=== PATIENT | female | born 1975 | race Caucasian/White ===

== ENCOUNTER → 2016-08-03 | Outpatient (CLI) | payer MEDICAID ==
--- NOTE | 2016-08-03 17:10 | RADIOLOGY REPORT (SQ) ---
EXAM DESCRIPTION: U/S NON-OB PELVIS TV W/O DOP COMPLETED DATE/TIME: 08/03/2016 4:54 pm REASON FOR STUDY: PELVIC PAIN R10.2 PELVIC AND PERINEAL PAIN COMPARISON: None. TECHNIQUE: Dynamic and static grayscale images acquired of the pelvis via transvaginal approach and recorded on PACS. Additional selected color Doppler and spectral images recorded. LIMITATIONS: None. FINDINGS: UTERUS: Contour normal. No mass. Uterus is 9.4 x 4.6 x 4.4 cm in size. ENDOMETRIAL STRIPE: No focal or generalized thickening. No masses. There is an IUD in the endometria l canal, in good positioning. CERVIX: Closed, subcentimeter nabothian cyst. RIGHT OVARY: Not visualized due to adnexal bowel gas RIGHT OVARY DOPPLER: Not performed LEFT OVARY: Not visualized due to adnexal bowel gas LEFT OVARY DOPPLER: Not performed FREE FLUID: None noted. OTHER: No other significant finding. IMPRESSION: Ovaries not visualized related to bowel gas IUD in the endometrial canal in good positioning No free pelvic fluid TECHNICAL DOCUMENTATION: JOB ID: [id number] [email or web address] All Rights Reserved
== END ==
LOC: RAD 16:16
PROVIDERS: ATTEND Physician Assistant
DX: R10.2 Pelvic and perineal pain (principal)
CPT/HCPCS: 76830

== ENCOUNTER 2016-08-07 10:46 | Day surgery (SDC) | payer MEDICAID ==
[~2016-08-07 10:46] MED LIST: PROPOFOL INJ 200 MG/20 ML VIAL IV ONE
--- NOTE | 2016-08-07 13:21 | Operative Report ---
Operative Report DATE OF SURGERY: 08/07/16 Operative Report: The risks benefits and alternatives of the procedure explained to the patient in detail and informed consent is obtained. A GIF Olympus video scope was inserted into the patient's mouth and hypopharynx, the esophagus is identified intubated and insufflated, the scope was then advanced through the esophagus stomach and duodenum, retroflexion maneuver is done, the esophagus stomach and first and second portions of the duodenum examined PREOPERATIVE DIAGNOSIS: Epigastric pain POSTOPERATIVE DIAGNOSIS: Gastritis status post biopsy rule out Helicobacter pylori. No ulcers are noted. Status post cholecystectomy OPERATION: EGD with biopsy SURGEON: JUSTINA GATES ANESTHESIA: LMAC TISSUE REMOVED OR ALTERED: Gastric mucosal specimen obtained to rule out Helicobacter pylori COMPLICATIONS: None. ESTIMATED BLOOD LOSS: None. INTRAOPERATIVE FINDINGS: Normal esophagus. No ulcers noted. First and second portions of the duodenum normal. PROCEDURE: Patient tolerated the procedure well. No immediate postprocedure complications are noted. Patient discharged in good condition. Discharge date 08/07/2016. Discharge diet: Regular. Discharge activity: Regular. 2-3 week follow-up to discuss findings. Patient is instructed to call the office or proceed to the emergency room should there be any further problems or questions. We will wait on pathology.
[2016-08-07 14:12] VITALS: BP 138/78
== END 2016-08-07 13:50 | disposition home or self-care (01) ==
LOC: END 10:46
PROVIDERS: ATTEND Internal Medicine Gastroenterology
PROC: 0DB68ZX Excision of Stomach, Via Natural or Artificial Opening Endoscopic, Diagnostic (ICD-10-PCS; principal; 2016-08-07 14:30)
DX: K29.50 Unspecified chronic gastritis without bleeding (principal); I10 Essential (primary) hypertension; F17.210 Nicotine dependence, cigarettes, uncomplicated; E66.9 Obesity, unspecified; Z68.43 Body mass index [BMI] 50.0-59.9, adult; Z88.0 Allergy status to penicillin; Z79.899 Other long term (current) drug therapy; Z88.1 Allergy status to other antibiotic agents
CPT/HCPCS: 43239; 88342 ×2; 88305 ×2; J2704; 740

== ENCOUNTER 2016-09-22 09:38 | Emergency (ER) | payer MEDICAID ==
--- NOTE | 2016-09-22 10:11 | ER Document Report ---
ED Medical Screen (RME) - General Chief Complaint: Vaginal Pain Stated Complaint: VAGINAL PAIN Time Seen by Provider: 09/22/16 09:57 Mode of Arrival: Medic Information source: Patient Notes: Patient presents complaining of Bartholin's gland abscess for the past 2 weeks. Patient had an incision and drainage procedure performed by the faucets assembler Dr. Escudero on 725 and was placed on Bactrim. Patient followed up with her primary doctor last week she was still having pain and was placed on additional antibiotic. Patient complains of increased pain and swelling to the vaginal area. Patient also states that she has had bronchitis that has been giving her difficulty breathing. TRAVEL OUTSIDE OF THE [place] IN LAST 30 DAYS: No - Related Data Allergies/Adverse Reactions: Penicillins Allergy (Unknown, Verified 09/22/16 09:44) Past Medical History - Social History Frequency of alcohol use: Occasional Drug Abuse: None - Past Medical History Cardiac Medical History: Reports: Hx Hypertension Denies: Hx Coronary Artery Disease, Hx Heart Attack Pulmonary Medical History: Denies: Hx Asthma, Hx Bronchitis, Hx COPD, Hx Pneumonia, Hx Tuberculosis Neurological Medical History: Reports: Hx Migraine. Denies: Hx Cerebrovascular Accident, Hx Seizures Renal/ Medical History: Denies: Hx Peritoneal Dialysis Musculoskeltal Medical History: Reports Hx Arthritis - LOWER BACK Psychiatric Medical History: Reports: Hx Anxiety, Hx Depression Past Surgical History: Reports: Hx Cholecystectomy. Denies: Hx Hysterectomy, Hx Pacemaker - Immunizations Immunizations up to date: Yes Hx Diphtheria, Pertussis, Tetanus Vaccination: Yes Physical Exam - Vital signs Vitals: Temp Pulse Resp BP Pulse Ox 99.0 F 105 H 26 H 147/93 H 98 09/22/16 09:43 09/22/16 09:43 09/22/16 09:43 09/22/16 09:43 09/22/16 09:43 - Genitourinary External exam: Other - Large right-sided Bartholin's gland abscess exquisitely tender Course - Vital Signs Vital signs: Temp Pulse Resp BP Pulse Ox 99.0 F 105 H 26 H 147/93 H 98 09/22/16 09:43 09/22/16 09:43 09/22/16 09:43 09/22/16 09:43 09/22/16 09:43
[2016-09-22] MEDS ORDERED: MORPHINE SULFATE 10 MG/ML INJ IV ONE ×2 (11:07→11:58)
--- NOTE | 2016-09-22 11:11 | ER Document Report ---
ED GI/ - General Chief Complaint: Vaginal Pain Stated Complaint: VAGINAL PAIN Time Seen by Provider: 09/22/16 09:57 Mode of Arrival: Medic Information source: Patient TRAVEL OUTSIDE OF THE [place] IN LAST 30 DAYS: No - HPI Patient complains to provider of: Pelvic pain, Vaginal pain Onset: Last week Timing/Duration: Gradual, Persistent Quality of pain: Achy, Fullness, Pressure Severity at maximum: Severe Severity in ED: Severe Exacerbated by: Movement Similar symptoms previously: Yes Notes: 09/22/16 11:10 Patient is a 41-year-old female who emergency room complaining of painful swelling to her right labia that has been worsening over the past week, she has a history of a Bartholin's gland abscess that was incised and drained approximately 2 months ago, she had her mitten relief but symptoms have been getting worse over the past week, today she was on her way to work and stopped at a gas station where it sounds as though she had a near syncopal episode, then she had another one again a couple hours later, at which point in time she came to the emergency room by EMS for treatment of her pain - Related Data Allergies/Adverse Reactions: Penicillins Allergy (Unknown, Verified 09/22/16 09:44) Past Medical History - General Information source: Patient - Social History Smoking Status: Current Every Day Smoker Frequency of alcohol use: Occasional Drug Abuse: None Family History: Reviewed & Not Pertinent - Past Medical History Cardiac Medical History: Reports: Hx Hypertension Denies: Hx Coronary Artery Disease, Hx Heart Attack Pulmonary Medical History: Denies: Hx Asthma, Hx Bronchitis, Hx COPD, Hx Pneumonia, Hx Tuberculosis Neurological Medical History: Reports: Hx Migraine. Denies: Hx Cerebrovascular Accident, Hx Seizures Renal/ Medical History: Denies: Hx Peritoneal Dialysis Musculoskeltal Medical History: Reports Hx Arthritis - LOWER BACK Psychiatric Medical History: Reports: Hx Anxiety, Hx Depression Past Surgical History: Reports: Hx Cholecystectomy. Denies: Hx Hysterectomy, Hx Pacemaker - Immunizations Immunizations up to date: Yes Hx Diphtheria, Pertussis, Tetanus Vaccination: Yes Hx Pneumococcal Vaccination: 02/19/11 Review of Systems - Review of Systems Constitutional: No symptoms reported EENT: No symptoms reported Cardiovascular: No symptoms reported Respiratory: No symptoms reported Gastrointestinal: No symptoms reported Genitourinary: No symptoms reported Female Genitourinary: See HPI Musculoskeletal: No symptoms reported Skin: No symptoms reported Hematologic/Lymphatic: No symptoms reported Neurological/Psychological: No symptoms reported -: Yes All other systems reviewed and negative Physical Exam - Vital signs Vitals: Temp Pulse Resp BP Pulse Ox 99.0 F 105 H 26 H 147/93 H 98 09/22/16 09:43 09/22/16 09:43 09/22/16 09:43 09/22/16 09:43 09/22/16 09:43 Interpretation: Normal - General General appearance: Appears well, Alert - HEENT Head: Normocephalic, Atraumatic Eyes: Normal Pupils: PERRL - Respiratory Respiratory status: No respiratory distress Chest status: Nontender Breath sounds: Normal Chest palpation: Normal - Cardiovascular Rhythm: Regular Heart sounds: Normal auscultation Murmur: No - Abdominal Inspection: Normal Distension: No distension Bowel sounds: Normal Tenderness: Nontender Organomegaly: No organomegaly - Genitourinary External exam: Other - Right labia significantly swollen, erythematous and tender to palpate - Back Back: Normal, Nontender - Extremities General upper extremity: Normal inspection, Nontender, Normal color, Normal ROM , Normal temperature General lower extremity: Normal inspection, Nontender, Normal color, Normal ROM , Normal temperature, Normal weight bearing. No: Tomi's sign - Neurological Neuro grossly intact: Yes Cognition: Normal Orientation: AAOx4 Renée Coma Scale Eye Opening: Spontaneous Harold Coma Scale Verbal: Oriented Renée Coma Scale Motor: Obeys Commands Renée Coma Scale Total: 15 Speech: Normal Motor strength normal: LUE, RUE, LLE, RLE Sensory: Normal - Psychological Associated symptoms: Normal affect, Normal mood - Skin Skin Temperature: Warm Skin Moisture: Dry Skin Color: Normal Course - Re-evaluation Re-evalutation: 09/22/16 11:49 It was discussed with on-call AUTOMOTIVE ELECTRICAL HELPER, Dr. Escudero who treated her recently for similar concerns, recommends I place a Word catheter at this point in time and she keep her appointment in 2 days time as scheduled, she will be scheduled for a procedure to remove the Bartholin's gland in the future once the infection clears, she also recommends I start patient on Bactrim DS twice daily 10 days 09/22/16 12:30 On examination I did find the point of rupture of the abscess on the right inner labia, I was able to express a significant amount of purulent drainage at this point, and a Moore catheter was placed, patient will be started on antibiotics and provided with pain medication, she was advised to keep her appointment on Sunday with AUTOMOTIVE ELECTRICAL HELPER or return if symptoms worsen, patient acknowledges understanding and agreement with this plan - Vital Signs Vital signs: Temp Pulse Resp BP Pulse Ox 98.9 F 91 16 124/73 97 09/22/16 12:54 09/22/16 12:54 09/22/16 12:54 09/22/16 12:54 09/22/16 12:54 - Laboratory Result Diagrams: 09/22/16 11:00 09/22/16 11:00 Laboratory results interpreted by me: 09/22/16 09/22/16 11:00 11:00 WBC 17.1 H Seg Neutrophils % 81.5 H Absolute Neutrophils 14.0 H Carbon Dioxide 17 L - Consults Dr Escudero Time consulted: 11:21 Reason for consultation: 09/22/16 11:21 large bartholin gland abscess, recurrent Consulted provider: other Procedures - Additional Procedures Moore catheter placement Time performed: 14:43 Additional Procedures: Other Discharge - Discharge Clinical Impression: Bartholin's gland abscess Condition: Stable Disposition: HOME, SELF-CARE Instructions: Abscess ([facility]), Oral Narcotic Medication ([facility]), Trimethoprim- Sulfa ([facility]) Additional Instructions: Follow up with your primary care provider in one to 2 days. Return to the emergency room immediately if symptoms worsen or any additional concerns. Follow-up with your AUTOMOTIVE ELECTRICAL HELPER on Sunday of next week as previously scheduled. Prescriptions: Hydrocodone/Acetaminophen [Hydrocodon-Acetaminophen 5-325] 1 each PO Q6 #20 tablet Sulfamethoxazole/Trimethoprim [Bactrim Ds Tablet] 1 each PO BID #20 tablet Forms: Return to Work Referrals: MARIE MONTAGUE PA-C [Primary Care Provider] - Follow up as needed
[2016-09-22 11:14] LABS: ABSOLUTE BASOPHILS # (AUTO) 0.1 10^3/uL (0.0-0.2); ABSOLUTE EOSINOPHILS # (AUTO) 0.1 10^3/uL (0.0-0.6); ABSOLUTE LYMPHOCYTES (AUTO) 2.4 10^3/uL (0.5-4.7); ABSOLUTE MONOCYTES (AUTO) 0.7 10^3/uL (0.1-1.4); BASOPHILS % (AUTO) 0.3 % (0-2); EOSINOPHILS % (AUTO) 0.3 % (0-6); HEMATOCRIT 39.5 % (36.0-47.0); HEMOGLOBIN 13.5 g/dL (12.0-15.5); MEAN CORPUSCULAR HEMOGLOBIN 29.8 pg (27.0-33.4); MEAN CORPUSCULAR HGB CONC 34.3 g/dL (32.0-36.0); MEAN CORPUSCULAR VOLUME 87 fl (80-97); MONOCYTES % (AUTO) 3.9 % (3-13); RED BLOOD COUNT 4.53 10^6/uL (3.72-5.28); RED CELL DISTRIBUTION WIDTH 13.6 % (11.5-14.0); SEGMENTED NEUTROPHILS % (AUTO) 81.5 % (42-78); WHITE BLOOD COUNT 17.1 10^3/uL (4.0-10.5)
[2016-09-22 11:33] LABS: ALANINE AMINOTRANSFERASE 23 U/L (9-52); ALBUMIN 3.7 g/dL (3.5-5.0); ALKALINE PHOSPHATASE 92 U/L (38-126); ANION GAP 16 (5-19); ASPARTATE AMINO TRANSFERASE 16 U/L (14-36); BILIRUBIN,DIRECT 0.4 mg/dL (0.0-0.4); BILIRUBIN,TOTAL 0.8 mg/dL (0.2-1.3); BLOOD UREA NITROGEN 12 mg/dL (7-20); CALCIUM 8.5 mg/dL (8.4-10.2); CARBON DIOXIDE 17 mmol/L (22-30); CHLORIDE 105 mmol/L (98-107); CREATININE RESULT 0.72 mg/dL (0.52-1.25); GLUCOSE 95 mg/dL (75-110); POTASSIUM 4.2 mmol/L (3.6-5.0); SODIUM 138.4 mmol/L (137-145); TOTAL PROTEIN 7.3 g/dL (6.3-8.2)
[2016-09-22] MEDS ORDERED: ONDANSETRON HCL INJ/PF 4 MG/2 ML SDV IV ONE (11:58)
[2016-09-22 13:03] VITALS: BP 124/73
== END 2016-09-22 13:03 | disposition home or self-care (01) ==
LOC: ER 09:38
DX: N75.1 Abscess of Bartholin's gland (principal); R10.2 Pelvic and perineal pain; I10 Essential (primary) hypertension; Z88.0 Allergy status to penicillin
CPT/HCPCS: 96376; 99284; 96374; 96375; 36415; 87040; 87070; 87205; 84703; 85025; 87075; 87077; 80053; 87186; 58999; J2270; J2405

== ENCOUNTER 2016-10-19 06:56 | Day surgery (SDC) | payer MEDICAID ==
[2016-10-16 12:34] LABS: HEMATOCRIT 37.8 % (36.0-47.0); HGB HCT DIFFERENCE 1.2; MEAN CORPUSCULAR HEMOGLOBIN 30.5 pg (27.0-33.4); MEAN CORPUSCULAR HGB CONC 34.4 g/dL (32.0-36.0); MEAN CORPUSCULAR VOLUME 89 fl (80-97); RED BLOOD COUNT 4.26 10^6/uL (3.72-5.28); RED CELL DISTRIBUTION WIDTH 14.1 % (11.5-14.0); WHITE BLOOD COUNT 9.4 10^3/uL (4.0-10.5)
[2016-10-16 12:45] LABS: AMORPHOUS SEDIMENT,URINE TRACE /HPF; APPEARANCE,URINE SLIGHTLY-CLOUDY; BILIRUBIN,URINE NEGATIVE (NEGATIVE); GLUCOSE, URINE NEGATIVE (NEGATIVE); KETONES,URINE NEGATIVE (NEGATIVE); LEUKOCYTE ESTERASE,URINE TRACE (NEGATIVE); NITRITE,URINE NEGATIVE (NEGATIVE); PROTEIN,URINE NEGATIVE (NEGATIVE); URINE SPECIFIC GRAVITY 1.026; UROBILINOGEN,URINE NEGATIVE mg/dL (<2.0)
--- NOTE | 2016-10-16 23:19 | EKG REPORT ---
SEVERITY:- BORDERLINE ECG - SINUS RHYTHM INFERIOR Q WAVES, PROBABLY NORMAL VARIATION : Confirmed by: Shar Gordillo 16-Oct-2016 23:18:02
[~2016-10-19 06:56] MED LIST changes: +CLINDAMYCIN 600 MG/D5W RTU 600 MG/50 ML RTUPB IV PRN; +LACTATED RINGERS 1000 ML IV PRN; +LIDOCAINE 0.5% INJ-PF (5 MG/ML) 50 ML SDV SUBCUT PRN; -PROPOFOL INJ 200 MG/20 ML VIAL IV ONE
[2016-10-19] MEDS ORDERED: SCOPOLAMINE HYDROBROMIDE 1.5 MG PATCH.TD72 ONE (07:45)
[2016-10-19] MEDS ORDERED: FAMOTIDINE INJ/PF 20 MG/2 ML SDV IV ONE (07:45)
[2016-10-19] MEDS ORDERED: MIDAZOLAM 2 MG/2 ML INJ ONE ×3 (07:45→08:39)
[2016-10-19] MEDS ORDERED: ALBUTEROL SULFATE 0.083% NEB 2.5 MG/3 ML AMPUL NEB ONE (07:53)
[2016-10-19] MEDS ORDERED: DEXAMETHASONE SOD PHOSPHATE INJ 4 MG/1 ML VIAL ONE (08:27)
[2016-10-19] MEDS ORDERED: ACETAMINOPHEN 100 ML IV ONE (08:27)
[2016-10-19] MEDS ORDERED: PROPOFOL INJ 200 MG/20 ML VIAL IV ONE (08:27)
[2016-10-19] MEDS ORDERED: ONDANSETRON HCL INJ/PF 4 MG/2 ML SDV ONE ×2 (08:27→18:48)
[2016-10-19] MEDS ORDERED: LIDOCAINE 2% INJ-PF (20 MG/ML) 10 ML AMPUL ONE (08:27)
[2016-10-19] MEDS ORDERED: FENTANYL CITRATE INJ/PF 100 MCG/2 ML AMPUL ONE (08:27)
[2016-10-19] MEDS ORDERED: KETOROLAC TROMETHAMINE 60 MG/2 ML SDV ONE (08:28)
[2016-10-19] MEDS ORDERED: LIDOCAINE 1% INJ-PF (10 MG/ML) 30 ML SDV ONE (08:28)
[2016-10-19] MEDS ORDERED: PROMETHAZINE HCL INJ 25 MG/1 ML VIAL IV PRN ×2 (09:10)
[2016-10-19] MEDS ORDERED: OXYCODONE-ACETAMINOPHEN 5-325 MG TABLET PO PRN ×2 (09:10)
[2016-10-19] MEDS ORDERED: ONDANSETRON HCL INJ/PF 4 MG/2 ML SDV IV PRN ×2 (09:10→18:49)
[2016-10-19] MEDS ORDERED: FENTANYL CITRATE INJ/PF 100 MCG/2 ML AMPUL IV PRN ×3 (09:10)
[2016-10-19] MEDS ORDERED: DIPHENHYDRAMINE HCL 50 MG/ML VIAL IV PRN (09:10)
[2016-10-19] MEDS ORDERED: MORPHINE SULFATE 10 MG/ML INJ IV PRN (09:10)
[2016-10-19] MEDS ORDERED: MEPERIDINE HCL/PF INJ 25 MG/1 ML DISP.SYRIN IV PRN (09:10)
[2016-10-19] MEDS ORDERED: EPHEDRINE SULFATE INJ 50 MG/1 ML AMPULE ONE (09:58)
[2016-10-19 11:38] LABS: ABSOLUTE EOSINOPHILS # (AUTO) 0.1 10^3/uL (0.0-0.6); ABSOLUTE LYMPHOCYTES (AUTO) 1.2 10^3/uL (0.5-4.7); ABSOLUTE MONOCYTES (AUTO) 0.3 10^3/uL (0.1-1.4); ABSOLUTE NEUT (AUTO) 11.5 10^3/uL (1.7-8.2); BASOPHILS % (AUTO) 0.3 % (0-2); EOSINOPHILS % (AUTO) 0.6 % (0-6); HEMATOCRIT 30.7 % (36.0-47.0); HEMOGLOBIN 10.4 g/dL (12.0-15.5); HGB HCT DIFFERENCE 0.5; LYMPHOCYTES % (AUTO) 9.4 % (13-45); MEAN CORPUSCULAR HEMOGLOBIN 29.9 pg (27.0-33.4); MEAN CORPUSCULAR HGB CONC 33.8 g/dL (32.0-36.0); MEAN CORPUSCULAR VOLUME 89 fl (80-97); MONOCYTES % (AUTO) 1.9 % (3-13); RED BLOOD COUNT 3.46 10^6/uL (3.72-5.28); RED CELL DISTRIBUTION WIDTH 14.4 % (11.5-14.0); SEGMENTED NEUTROPHILS % (AUTO) 87.8 % (42-78); WHITE BLOOD COUNT 13.1 10^3/uL (4.0-10.5)
[2016-10-19] MEDS ORDERED: LORAZEPAM INJ 2 MG/1 ML VIAL ONE (11:42)
[2016-10-19 11:55] LABS: ALANINE AMINOTRANSFERASE 21 U/L (9-52); ALBUMIN 2.9 g/dL (3.5-5.0); ALKALINE PHOSPHATASE 60 U/L (38-126); ANION GAP 10 (5-19); ASPARTATE AMINO TRANSFERASE 17 U/L (14-36); BILIRUBIN,DIRECT 0.3 mg/dL (0.0-0.4); BILIRUBIN,TOTAL 0.5 mg/dL (0.2-1.3); BLOOD UREA NITROGEN 12 mg/dL (7-20); CALCIUM 8.4 mg/dL (8.4-10.2); CARBON DIOXIDE 21 mmol/L (22-30); CHLORIDE 110 mmol/L (98-107); CREATININE RESULT 0.87 mg/dL (0.52-1.25); GLUCOSE 114 mg/dL (75-110); POTASSIUM 3.8 mmol/L (3.6-5.0); SODIUM 140.8 mmol/L (137-145); TOTAL PROTEIN 5.8 g/dL (6.3-8.2)
[2016-10-19] MEDS ORDERED: HYDROMORPHONE HCL INJ/PF 2 MG/ML AMPULE IV PRN ×2 (13:02→17:30)
[2016-10-19] MEDS ORDERED: HYDROCODONE/ACETAMINOPHEN 5-325 MG TABLET ONE (13:30)
[2016-10-19] MEDS ORDERED: HYDROCODONE/ACETAMINOPHEN 5-325 MG TABLET PO SCH (14:00)
[2016-10-19] MEDS: HYDROCODONE/ACETAMINOPHEN 5-325 MG TABLET PO SCH ×3 (15:37→21:36)
[2016-10-20] MEDS: HYDROCODONE/ACETAMINOPHEN 5-325 MG TABLET PO SCH ×4 (01:28→13:45)
[2016-10-20] MEDS ORDERED: HYDROMORPHONE HCL 2 MG TABLET PO PRN (08:31)
--- NOTE | 2016-10-20 12:26 | PDOC DISCHARGE SUMMARY ---
General - Admit/Disc Date/PCP Admission Date/Primary Care Provider: MARIE MONTAGUE PA-C Discharge Date: 10/20/16 - Discharge Diagnosis (1) Bartholin gland cyst Is this a current diagnosis for this admission?: Yes Summary: s/p excision. Larger cyst than expected with increased EBL. Admitted for obseration and pain control overnight. doing well. tolerating po meds and adequate pain control on po meds. - Additional Information Home Medications: Lisinopril 40 mg PO DAILY 08/07/16 Lorazepam [Ativan 1 mg Tablet] 1 - 2 tab PO PRN PRN 10/13/16 History of Present Illness Patient complains of: feeling better History of Present Illness: CARI SÁNCHEZ is a 41 year old female s/p excision of right bartholins gland on 10/19. She is improved today with adequate pain control and desires to discharge home. Hospital Course Hospital Course: 41 year old female s/p excision of right bartholins gland on 10/19. She is improved today (IV dilauded for breaktrhough pain overnight - now on po dilaudid ) with adequate pain control and desires to discharge home Physical Exam - Physical Exam Vital Signs: Temp Pulse Resp BP Pulse Ox 98.1 F 65 16 121/69 97 10/20/16 07:49 10/20/16 07:49 10/20/16 07:49 10/20/16 07:49 10/20/16 07:49 Intake & Output 10/19/16 10/20/16 10/21/16 06:59 06:59 06:59 Intake Total 3650 Output Total 800 Balance 2850 Weight 136.08 kg General appearance: PRESENT: no acute distress, well-developed, well-nourished Head exam: PRESENT: atraumatic, normocephalic Cardiovascular exam: PRESENT: RRR. ABSENT: diastolic murmur, rubs, systolic murmur Pulses: PRESENT: normal dorsalis pedis pul, +2 pedal pulses bilateral Vascular exam: PRESENT: normal capillary refill GI/Abdominal exam: PRESENT: normal bowel sounds, soft. ABSENT: distended, guarding, mass, organolmegaly, rebound, tenderness Rectal exam: PRESENT: deferred Gentrourinary exam: PRESENT: other - incision c/d/i, no e/o infection. no e/o erythema, no bruisinh, no hematoma Extremities exam: PRESENT: full ROM. ABSENT: calf tenderness, clubbing, pedal edema Musculoskeletal exam: PRESENT: ambulatory Neurological exam: PRESENT: alert, awake, oriented to person, oriented to place , oriented to time, oriented to situation, CN II-XII grossly intact. ABSENT: motor sensory deficit Psychiatric exam: PRESENT: appropriate affect, normal mood. ABSENT: homicidal ideation, suicidal ideation Result Laboratory Results: 10/19/16 11:22 10/19/16 11:22 Plan Discharge Plan: Discharge to home f/u in office next week Time Spent: Less than 30 Minutes
--- NOTE | 2016-10-20 12:28 | PDOC PROGRESS REPORT ---
Subjective Progress Note for:: 10/20/16 Subjective:: s/p bartholins excision. Doing well, improved pain control. Physical Exam - Physical Exam Vital Signs: Temp Pulse Resp BP Pulse Ox 98.1 F 65 16 121/69 97 10/20/16 07:49 10/20/16 07:49 10/20/16 07:49 10/20/16 07:49 10/20/16 07:49 Intake & Output 10/19/16 10/20/16 10/21/16 06:59 06:59 06:59 Intake Total 3650 Output Total 800 Balance 2850 Weight 136.08 kg General appearance: PRESENT: no acute distress, well-developed, well-nourished Head exam: PRESENT: atraumatic, normocephalic Respiratory exam: PRESENT: clear to auscultation lan, symmetrical, unlabored Cardiovascular exam: PRESENT: RRR. ABSENT: diastolic murmur, rubs, systolic murmur GI/Abdominal exam: PRESENT: normal bowel sounds, soft. ABSENT: distended, guarding, mass, organolmegaly, rebound, tenderness Gentrourinary exam: PRESENT: other - incision c/d/i, no e/o erythema or bruising or hematoma Extremities exam: PRESENT: full ROM. ABSENT: calf tenderness, clubbing, pedal edema Musculoskeletal exam: PRESENT: ambulatory Neurological exam: PRESENT: alert, awake, oriented to person, oriented to place , oriented to time, oriented to situation, CN II-XII grossly intact. ABSENT: motor sensory deficit Psychiatric exam: PRESENT: appropriate affect, normal mood. ABSENT: homicidal ideation, suicidal ideation Result Laboratory Results: 10/19/16 11:22 10/19/16 11:22 Assessment & Plan - Diagnosis (1) Bartholin gland cyst Is this a current diagnosis for this admission?: Yes Plan: Discharge to home - Time Time Spent with patient: Less than 15 minutes Critical Time spent with patient: Less than 15 minutes Medications reviewed and adjusted accordingly: Yes Anticipated discharge: Home Within: within 24 hours - Inpatient Certification Based on my medical assessment, after consideration of the patient's comorbidities, presenting symptoms, or acuity I expect that the services needed warrant INPATIENT care.: No I certify that my determination is in accordance with my understanding of Medicare's requirements for reasonable and necessary INPATIENT services [42 CFR 412.3e].: No Medical Necessity: Other - Plan Summary Plan Summary: Discharge to home
[2016-10-20 14:45] VITALS: BP 138/96
--- NOTE | 2016-11-02 09:43 | Operative Report ---
Operative Report DATE OF SURGERY: 10/19/16 PREOPERATIVE DIAGNOSIS: Right Bartholin Gland Cyst POSTOPERATIVE DIAGNOSIS: KAREN - s/p removal of bartholins gland cyst wall OPERATION: Right Batholins gland cyst wall excision SURGEON: ABDIAZIZ BANDA ANESTHESIA: GA TISSUE REMOVED OR ALTERED: rigth batholins gland cyst wall COMPLICATIONS: Increased blood loss and patient with low blood pressure postop due to lisinopril (responded to ephedrine given by Anesthesia ESTIMATED BLOOD LOSS: 450ml INTRAOPERATIVE FINDINGS: Very large bartholins gland cyst with mucincous fluid recollectin in cyst. sites of prior rupture and prior word catheter noted. PROCEDURE: Anesthesia: [Luiza ARIZMENDI, Lakisha Acuna CROP PULLER] IVF: [1700ml] UOP: [150ml] Indications: [41yo with Right bartholins gland cyst drained on 09/12. Pt reports word catheter then fell out after 1 weeks and cyst then reaccumulated and then rupture spontaneously on 09/22. She was seen in the ER and word catheter placed at the site of rupture which then fell out after approximately 1 weeks. However, the cyst reaccumulated again and the patient desires surgical management. Due to her age the options for management were discussed and she desires surgical excision of bartholins gland on right. ] Procedure: The patient was taken to the Operating Room where general anesthesia was obtained without difficulty. She was prepped and draped in the normal sterile fashion in the dorsal lithotomy position. Exam under anesthesia was performed and noted above. The batholins gland cyst was then located and opened and drained of remaining mucinous fluid. THe cyst was was easily located but noted to be extensive and extending 3-4cm into vaginal and 2-3 cm toward right labia. The cyst wall was then carefully excised and the defect left closed in a layered fashion with 20 vicryl for hemostasis. The vaginal mucosa was then closed with 30 vicryl in a running fashion. Good hemostasis was achieved. Sponge lap needle and instrument counts are correct 2. perioperative antibiotics were given. The patient tolerated the procedure well and was taken to the recovery area awake and in stable condition then admitted for observation on the floor for continued monitoring and pain control.
== END 2016-10-20 15:25 | disposition home or self-care (01) ==
LOC: OROUT 06:56 → 2S 12:35 → OROUT 10-20 15:25
PROVIDERS: ATTEND Student in an Organized Health Care Education/Training Program
PROC: 0UBL0ZZ Excision of Vestibular Gland, Open Approach (ICD-10-PCS; principal; 2016-10-19 09:00)
DX: N75.0 Cyst of Bartholin's gland (principal); I10 Essential (primary) hypertension; J45.909 Unspecified asthma, uncomplicated; F17.210 Nicotine dependence, cigarettes, uncomplicated; F41.9 Anxiety disorder, unspecified; F31.81 Bipolar II disorder; G47.33 Obstructive sleep apnea (adult) (pediatric); E66.9 Obesity, unspecified; Z79.899 Other long term (current) drug therapy; Z88.0 Allergy status to penicillin; Z68.42 Body mass index [BMI] 45.0-49.9, adult
CPT/HCPCS: 93005; 36415 ×2; 85025; 85027; 81025; 80053; 81001; 88305 ×2; 93010; 94640; 56740; J2250; S0077; J1100; J1885; J3010; J3490 ×4; J1170 ×2; J2060; J2405 ×2; J7120; J2704; S0028; J0131; 940

== ENCOUNTER 2018-02-07 07:42 | Emergency (ER) | payer SELFPAY ==
--- NOTE | 2018-02-07 08:06 | ER Document Report ---
Addendum entered and electronically signed by ANNE ANDERSON PA-C 02/07/18 08:36: Discharge - Discharge Clinical Impression: Cough Condition: Stable Disposition: HOME, SELF-CARE Additional Instructions: Maintain adequate fluid intake Take meds as directed tylenol/ibuprofen as needed over the counter cold medication as needed for symptoms Humidified air may help Wash your hands regularly Wear a mask when coughing F/u: with your PCM in 3-5 days for a recheck Return to the ED with any fever, worsening pain, chest pain, palpitations, syncope, worsening SCOTT, neck pain/stiffness, shortness of breath, wheezing, drooling, trouble swallowing/breathing, abdominal pain, n/v/d, rash, or worsening/concerning symptoms otherwise. Prescriptions: Benzonatate [Tessalon Perle 100 mg Capsule] 100 mg PO Q8HP PRN #15 cap PRN Reason: Albuterol Sulfate [Proair HFA Inhalation Aerosol 8.5 gm MDI] 2 puff IH Q4H PRN #1 mdi PRN Reason: Prednisone [Deltasone 10 mg Tablet] 10 mg PO DAILY #18 tablet Forms: Elevated Blood Pressure Referrals: MARIE MONTAGUE PA-C [Primary Care Provider] - Follow up in 3-5 days Original Note: HPI - HPI Time Seen by Provider: 02/07/18 07:55 Pain Level: 2 Notes: Patient is a 42-year-old female with no significant past medical history who presents to the ED complaining of a dry nonproductive cough times 1 month. Patient states that she is already been through antibiotics with your PCM and finished them about 1.5 weeks ago. Patient states that she is eating and drinking without difficulty. She is urinating normally and having normal bowel movements. She has an allergy to penicillins. Patient states that she did stop smoking just prior to the start of her illness. No other concerns or complaints. Denies any headache, fever, neck pain, URI, sore throat, chest pain, palpitations, syncope, shortness of breath, wheeze, dyspnea, abdominal pain, nausea/vomiting/diarrhea, urinary retention, dysuria, hematuria, or rash. - ROS Systems Reviewed and Negative: Yes All other systems reviewed and negative - CONSTITUTIONAL Constitutional: REPORTS: Fever - subjective, Chills - subjective - EENT EENT: DENIES: Sore Throat, Ear Pain, Eye problems - NEURO Neurology: DENIES: Headache, Weakness, Vision blurred, Dizzinesss / Vertigo - CARDIOVASCULAR Cardiovascular: DENIES: Chest pain - RESPIRATORY Respiratory: REPORTS: Coughing - non productive. DENIES: Trouble Breathing - GASTROINTESTINAL Gastrointestinal: DENIES: Abdominal Pain, Black / Bloody Stools - URINARY Urinary: DENIES: Dysuria, Urgency, Frequency - REPRODUCTIVE Reproductive: DENIES: : - MUSCULOSKELETAL Musculoskeletal: DENIES: Extremity pain Past Medical History - Social History Smoking Status: Former Smoker Family History: Reviewed & Not Pertinent Patient has suicidal ideation: No Patient has homicidal ideation: No - Past Medical History Cardiac Medical History: Reports: Hx Hypertension Denies: Hx Coronary Artery Disease, Hx Heart Attack Pulmonary Medical History: Denies: Hx Asthma, Hx Bronchitis, Hx COPD, Hx Pneumonia, Hx Tuberculosis Neurological Medical History: Reports: Hx Migraine. Denies: Hx Cerebrovascular Accident, Hx Seizures Renal/ Medical History: Denies: Hx Peritoneal Dialysis Musculoskeletal Medical History: Reports Hx Arthritis - LOWER BACK Psychiatric Medical History: Reports: Hx Anxiety, Hx Depression Past Surgical History: Reports: Hx Cholecystectomy. Denies: Hx Hysterectomy, Hx Pacemaker - Immunizations Immunizations up to date: Yes Hx Diphtheria, Pertussis, Tetanus Vaccination: Yes Hx Pneumococcal Vaccination: 02/19/11 Vertical Provider Document - CONSTITUTIONAL Agree With Documented VS: Yes Notes: PHYSICAL EXAMINATION: GENERAL: Well-appearing, well-nourished and in no acute distress. A&Ox4. Answers questions appropriately. Moves comfortably w/o notable distress HEAD: Atraumatic, normocephalic. EYES: Pupils equal round and reactive to light, extraocular movements intact, sclera anicteric, conjunctiva are normal. ENT: EAC clear b/l. TM's intact b/l without erythema, fluid, or perforation. Nares patent and without discharge. oropharynx no erythema without exudates. No tonsilar hypertrophy without erythema or exudate. No palatine shift. Uvula midline. No tongue protrusion. No drooling, hoarseness, or airway compromise. Moist mucous membranes. No sinus tenderness. NECK: Normal range of motion, supple without lymphadenopathy. No rigidity/meningismus. LUNGS: Breath sounds clear to auscultation bilaterally and equal. No wheezes rales or rhonchi. No retractions HEART: Regular rate and rhythm without murmurs, rubs, gallops. ABDOMEN: Soft, nontender, nondistended abdomen. No guarding, no rebound. No masses appreciated. Normal bowel sounds present. No CVA tenderness bilaterally. No hepatosplenomegaly. NEUROLOGICAL: Normal speech, normal gait. Normal sensory, motor exams PSYCH: Normal mood, normal affect. SKIN: Warm, Dry, normal turgor, no rashes or lesions noted. - INFECTION CONTROL TRAVEL OUTSIDE OF THE [place] IN LAST 30 DAYS: No Course - Re-evaluation Re-evalutation: 02/07/18 08:33 Patient is an afebrile, well-hydrated, 42-year-old female who presents to the ED with a cough, suspect viral. Vitals are acceptable. PE is otherwise unremarkable. CXR negative. No other labs or imaging warranted at this time based on H&P. Patient has no significant cardiopulmonary or immunocompromised medical conditions. Patient's lungs are clear to auscultation bilaterally without tachycardia, hypoxia, or tachypnea. Patient is tolerating p.o. without any difficulties. Low suspicion for any ACS, PE, pneumothorax, meningitis, sepsis, peritonsillar/pharyngeal abscess, respiratory compromise, severe dehydration, or other emergent systemic condition at this time. Patient is aware this condition can change from initial presentation and she needs to monitor symptoms closely. Rx for steroid taper and tessalon. Conservative measures otherwise for symptoms. Recheck with your PCM in 3-5 days. Return to the ED with any worsening/concerning symptoms otherwise as reviewed in discharge. Patient is in agreement. - Vital Signs Vital signs: Temp Pulse Resp BP Pulse Ox 98.7 F 89 18 144/117 H 97 02/07/18 07:45 02/07/18 07:45 02/07/18 07:45 02/07/18 07:45 02/07/18 07:45 Discharge - Discharge Clinical Impression: Cough Condition: Stable Disposition: HOME, SELF-CARE Additional Instructions: Maintain adequate fluid intake Take meds as directed tylenol/ibuprofen as needed over the counter cold medication as needed for symptoms Humidified air may help Wash your hands regularly Wear a mask when coughing F/u: with your PCM in 3-5 days for a recheck Return to the ED with any fever, worsening pain, chest pain, palpitations, syncope, worsening SCOTT, neck pain/stiffness, shortness of breath, wheezing, drooling, trouble swallowing/breathing, abdominal pain, n/v/d, rash, or worsening/concerning symptoms otherwise. Prescriptions: Benzonatate [Tessalon Perle 100 mg Capsule] 100 mg PO Q8HP PRN #15 cap PRN Reason: Prednisone [Deltasone 10 mg Tablet] 10 mg PO DAILY #18 tablet Forms: Elevated Blood Pressure Referrals: MARIE MONTAGUE PA-C [Primary Care Provider] - Follow up in 3-5 days
--- NOTE | 2018-02-07 08:18 | RADIOLOGY REPORT (SQ) ---
EXAM DESCRIPTION: CHEST 2 VIEWS COMPLETED DATE/TIME: 02/07/2018 8:09 am REASON FOR STUDY: cough COMPARISON: 05/09/2008. EXAM PARAMETERS: NUMBER OF VIEWS: two views TECHNIQUE: Digital Frontal and Lateral radiographic views of the chest acquired. RADIATION DOSE: NA LIMITATIONS: none FINDINGS: LUNGS AND PLEURA: No opacities, masses or pneumothorax. No pleural effusion. MEDIASTINUM AND HILAR STRUCTURES: No masses or contour abnormalities. HEART AND VASCULAR STRUCTURES: Heart normal size. No evidence for failure. BONES: No acute findings. HARDWARE: None in the chest. OTHER: No other significant finding. IMPRESSION: NO ACUTE RADIOGRAPHIC FINDING IN THE CHEST. TECHNICAL DOCUMENTATION: JOB ID: [id number] [employer]- All Rights Reserved Reading location - IP/workstation name: [email or web address]
[2018-02-07 09:02] VITALS: BP 144/91
== END 2018-02-07 09:02 | disposition home or self-care (01) ==
LOC: ER 07:42
DX: R05 Cough (principal); I10 Essential (primary) hypertension; Z90.49 Acquired absence of other specified parts of digestive tract
CPT/HCPCS: 71046; 99283

== ENCOUNTER 2018-02-18 21:06 | Inpatient (IN) | payer SELFPAY ==
--- NOTE | 2018-02-18 22:55 | RADIOLOGY REPORT (SQ) ---
XR CHEST 2 VIEWS HISTORY: Cough, sob, fever. COMPARISON: None. FINDINGS: The cardiomediastinal silhouette is unremarkable. There is atelectasis/scarring at the lung bases. No pleural effusion or pneumothorax is identified. IMPRESSION: No acute cardiopulmonary abnormality.
[2018-02-18 23:18] LABS: HEMOGLOBIN 12.6 g/dL (12.0-15.5); MEAN CORPUSCULAR HEMOGLOBIN 28.9 pg (27.0-33.4); MEAN CORPUSCULAR HGB CONC 33.3 g/dL (32.0-36.0); MEAN CORPUSCULAR VOLUME 87 fl (80-97); PLATELET COUNT 297 10^3/uL (150-450); RED BLOOD COUNT 4.37 10^6/uL (3.72-5.28); WHITE BLOOD COUNT 20.2 10^3/uL (4.0-10.5)
[2018-02-18 23:24] LABS: ANION GAP 8 (5-19); BLOOD UREA NITROGEN 10 mg/dL (7-20); CALCIUM 8.8 mg/dL (8.4-10.2); CARBON DIOXIDE 26 mmol/L (22-30); CHLORIDE 103 mmol/L (98-107); GLUCOSE 117 mg/dL (75-110); POTASSIUM 3.6 mmol/L (3.6-5.0); SODIUM 136.6 mmol/L (137-145)
--- NOTE | 2018-02-18 23:38 | EKG REPORT ---
SEVERITY:- OTHERWISE NORMAL ECG - SINUS TACHYCARDIA BASELNE ARTIFACT : Confirmed by: Chula Tavarez MD 18-Feb-2018 23:37:40
[2018-02-18 23:39] LABS: ABSOLUTE LYMPHOCYTES# (MANUAL) 3.6 10^3/uL (0.5-4.7); ABSOLUTE MONOCYTES # (MANUAL) 1.4 10^3/uL (0.1-1.4); ABSOLUTE NEUTROPHILS# (MANUAL) 14.7 10^3/uL (1.7-8.2); BAND NEUTROPHILS % (MANUAL) 1 % (3-5); BASOPHILS % (MANUAL) 1 % (0-2); EOSINOPHILS % (MANUAL) 1 % (0-6); LYMPHOCYTES % (MANUAL) 18 % (13-45); MONOCYTES % (MANUAL) 7 % (3-13); SEGMENTED NEUTROPHILS % (MAN) 72 % (42-78); TOTAL CELLS COUNTED 100
[2018-02-18 23:43] LABS: A TYPE INFLUENZA AG NEGATIVE (NEGATIVE); B INFLUENZA AG NEGATIVE (NEGATIVE)
[2018-02-18 23:45] LABS: TOXIC GRANULATION 1+
[2018-02-18 23:46] LABS: HYPOCHROMASIA SLIGHT; PLATELET COMMENT ADEQUATE; POIKILOCYTOSIS SLIGHT; TEAR DROP CELLS SLIGHT; TOXIC VACUOLATION PRESENT
[2018-02-19] MEDS ORDERED: RINGERS SOLUTION,LACTATED 1,000 ML IV ONE (00:04)
[2018-02-19] MEDS ORDERED: LIDOCAINE 2% INJ-PF (20 MG/ML) 10 ML AMPUL NEB ONE (00:04)
--- NOTE | 2018-02-19 01:08 | ER Document Report ---
ED General - General Chief Complaint: Cold Symptoms Stated Complaint: COUGH,SORE THROAT, VOMITING,POSSIBLE FEVER Time Seen by Provider: 02/18/18 22:16 Notes: Patient is a 42-year-old female with a past history of morbid obesity, hypertension, presents with approximately 3 weeks of progressively worsening cough now with fever and increased sputum production over the last 48 hours. Patient reports that the cough is still persistent it prevents her from sleeping. She notes that she is coughed so hard that has induced vomiting. She has had fever up to 102 F at home which she has treated with Tylenol. She has tried Tessalon Perles and steroids on 2 separate occasions without any relief of her cough. No obvious worsening factors for symptoms. She has seen her primary care doctor as well as an emergency room regarding today's concerns. TRAVEL OUTSIDE OF THE [place] IN LAST 30 DAYS: No - Related Data Allergies/Adverse Reactions: Penicillins Allergy (Unknown, Verified 10/13/16 17:11) Anaphylaxis Past Medical History - General Information source: Patient - Social History Smoking Status: Never Smoker Frequency of alcohol use: None Drug Abuse: None Lives with: Spouse/Significant other Family History: Reviewed & Not Pertinent - Past Medical History Cardiac Medical History: Reports: Hx Hypertension Denies: Hx Coronary Artery Disease, Hx Heart Attack Pulmonary Medical History: Denies: Hx Asthma, Hx Bronchitis, Hx COPD, Hx Pneumonia, Hx Tuberculosis Neurological Medical History: Reports: Hx Migraine. Denies: Hx Cerebrovascular Accident, Hx Seizures Renal/ Medical History: Denies: Hx Peritoneal Dialysis Musculoskeletal Medical History: Reports Hx Arthritis - LOWER BACK Psychiatric Medical History: Reports: Hx Anxiety, Hx Depression Past Surgical History: Reports: Hx Cholecystectomy. Denies: Hx Hysterectomy, Hx Pacemaker - Immunizations Immunizations up to date: Yes Hx Diphtheria, Pertussis, Tetanus Vaccination: Yes Hx Pneumococcal Vaccination: 02/19/11 Review of Systems - Review of Systems Notes: Constitutional: Positive for fever. HENT: Negative for sore throat. Eyes: Negative for visual changes. Cardiovascular: Negative for chest pain. Respiratory: Positive for cough and shortness of breath Gastrointestinal: Negative for abdominal pain, positive for posttussive emesis Genitourinary: Negative for dysuria. Musculoskeletal: Negative for back pain. Skin: Negative for rash. Neurological: Negative for headaches, weakness or numbness. 10 point ROS negative except as marked above and in HPI. Physical Exam - Vital signs Vitals: Temp Pulse Resp BP Pulse Ox 100.9 F H 110 H 20 151/88 H 95 02/18/18 21:26 02/18/18 21:26 02/18/18 21:26 02/18/18 21:26 02/18/18 21:26 Interpretation: Tachycardic, Tachypneic, Febrile Notes: PHYSICAL EXAMINATION: GENERAL: Appears moderately unwell, somewhat uncomfortable but in no acute distress. HEAD: Atraumatic, normocephalic. EYES: Pupils equal round and reactive to light, extraocular movements intact, sclera anicteric, conjunctiva are normal. ENT: nares patent, oropharynx clear without exudates. Moderately dry mucous membranes. NECK: Normal range of motion, supple without lymphadenopathy LUNGS: Mild tachypnea but no retractions or distress. Mildly diminished at the bases, more diminished on the right versus the left HEART: Regular tachycardia without murmurs ABDOMEN: Soft, nontender, normoactive bowel sounds. No guarding, no rebound. No masses appreciated. EXTREMITIES: Normal range of motion, no pitting or edema. No cyanosis. NEUROLOGICAL: No focal neurological deficits. Moves all extremities spontaneously and on command. PSYCH: Moderately anxious SKIN: Warm, Dry, normal turgor, no rashes or lesions noted. Course - Re-evaluation Re-evalutation: 02/19/18 00:05 Patient is a 42-year-old female presenting with 1 month of persistent coughing most consistent with acute viral bronchitis. The patient has gone through 2 courses of steroids, course of antibiotics, no relief. Patient does have a prominent leukocytosis at 20.1. At time of presentation patient is moderately tachycardic, heart rate in the low 100s, saturating 95% on room air. No tachypnea or retractions. Chest x-ray is clear. CT will be obtained given vital sign derangements, leukocytosis. 02/19/18 01:54 CT scan does show a right lower lobe consolidation as well as a right upper lobe consolidation likely consistent with a multifocal pneumonia. Levofloxacin has been initiated. Given the patient's persistent tachycardia, fever, white blood cell count of 20.1, I discussed with the hospitalist for admission who has accepted. - Vital Signs Vital signs: Temp Pulse Resp BP Pulse Ox 100.9 F H 110 H 12 148/82 H 94 02/18/18 21:26 02/18/18 21:26 02/18/18 22:16 02/18/18 22:16 02/18/18 22:16 - Laboratory Result Diagrams: 02/18/18 23:02 02/18/18 23:02 Laboratory results interpreted by me: 02/18/18 02/18/18 23:02 23:02 WBC 20.2 H Band Neutrophils % 1 L Abs Neuts (Manual) 14.7 H Sodium 136.6 L Glucose 117 H - Diagnostic Test Radiology reviewed: Image reviewed, Reports reviewed Radiology results interpreted by me: 02/19/18 01:56 Chest x-ray: No acute infiltrate or pneumothorax Discharge - Discharge Clinical Impression: Multifocal pneumonia, Morbid obesity with BMI of 50.0-59.9, adult Sepsis Qualifiers: Sepsis type: sepsis due to unspecified organism Qualified Code(s): A41.9 - Sepsis, unspecified organism Condition: Fair Disposition: ADMITTED INPATIENT Admitting Provider: Hospitalist Unit Admitted: Telemetry
--- NOTE | 2018-02-19 01:38 | RADIOLOGY REPORT (SQ) ---
CT CHEST WITH IV CONTRAST HISTORY: Fever, elevated wbc, sob. COMPARISON: None. TECHNIQUE: CT scan of the chest with IV contrast. This exam was performed according to our departmental dose-optimization program, which includes automated exposure control, adjustment of the mA and/or kV according to patient size and/or use of iterative reconstruction technique. FINDINGS: There is a subcentimeter hypodense lesion in the left thyroid lobe. No mediastinal, hilar, or axillary adenopathy is seen. The heart size is normal. No pericardial effusion is seen. There is an area of consolidation in the right lower lobe. There is also groundglass opacity in the right upper lobe. Scattered areas of parenchymal scarring are seen in both lower lobes. No pleural effusions or pneumothorax. Limited views of the upper abdomen demonstrate no acute findings. The osseous structures are intact. IMPRESSION: Consolidation in the right lower lobe. Groundglass opacity in the right upper lobe. This may represent multifocal pneumonia.
[2018-02-19] MEDS ORDERED: LEVOFLOXACIN 750 MG/D5W RTU 750 MG/150 ML RTUPB IV ONE (01:53)
[2018-02-19] MEDS ORDERED: MAG HYDROX/AL HYDROX/SIMETH SUSP 30 ML UDCUP PO PRN (02:17)
[2018-02-19] MEDS ORDERED: ONDANSETRON HCL INJ/PF 4 MG/2 ML SDV IV PRN (02:17)
[2018-02-19] MEDS ORDERED: MAGNESIUM HYDROXIDE SUSP 30 ML UDCUP PO PRN (02:17)
[2018-02-19] MEDS ORDERED: ONDANSETRON 4 MG TAB.RAPDIS PO PRN (02:17)
[2018-02-19] MEDS ORDERED: ACETAMINOPHEN 650 MG SUPP.RECT PR PRN (02:23)
[2018-02-19] MEDS ORDERED: NICOTINE 21 MG/24 HR PATCH.TD24 TD PRN (02:23)
[2018-02-19] MEDS ORDERED: ACETAMINOPHEN 325 MG TABLET PO PRN (02:23)
[2018-02-19] MEDS ORDERED: ATENOLOL 50 MG TABLET PO ONE (02:45)
[2018-02-19] MEDS ORDERED: MORPHINE SULFATE 10 MG/ML INJ IV PRN ×2 (05:21)
--- NOTE | 2018-02-19 05:38 | PDOC H&P ---
History of Present Illness Admission Date/PCP: MARIE MONTAGUE PA-C Patient complains of: cough History of Present Illness: CARI SÁNCHEZ is a 42 year old female who presented to the emergency room with a 5-6 week history of a persistent nonproductive cough accompanied by intermittent fevers and occasional posttussive emesis. She admits that her cough has gradually worsened to the point where she now considers it to be severe and she has not found any improvement with treatment received on an outpatient basis including antitussives, antibiotics and steroids. She admits having low-grade fevers without chills at home and also she has experienced frequent paroxysmal coughing occasionally resulting in posttussive emesis. She denies having prior similar episodes of persistent cough and she has not thus far identified any aggravating or ameliorating factors for her cough. In the emergency room she was found to have hypertension, a mild tachycardia and a low- grade fever with a leukocytosis of 20,100. Chest x-ray was normal but chest CT showed some groundglass interstitial changes in the left upper lobe and a small consolidated area involving the tissues around the right lower lobe main bronchus, this also appears to need to be more likely interstitial/peribronchial disease than airspace disease. The patient technically meets SIRS criteria h owever she does not generally appear ill enough to be considered septic. She will be admitted for further evaluation treatment as she has failed outpatient therapy. Past Medical History Cardiac Medical History: Reports: Hypertension Denies: Coronary Artery Disease, Myocardial Infarction Pulmonary Medical History: Reports: Asthma - Childhood variety, Bronchitis Denies: Chronic Obstructive Pulmonary Disease (COPD), Intubation, Pneumonia, Tuberculosis EENT Medical History: Reports: None Neurological Medical History: Reports: Migraine Denies: Seizures Endocrine Medical History: Reports: Obesity Denies: Diabetes Mellitus Type 1, Diabetes Mellitus Type 2 Renal/ Medical History: Denies: Chronic Kidney Disease, Nephrolithiasis Malignancy Medical History: Reports: None GI Medical History: Denies: Cirrhosis, Hepatitis Musculoskeltal Medical History: Reports: Arthritis - LOWER BACK Denies: Gout Skin Medical History: Denies: Eczema, Psoriasis Psychiatric Medical History: Reports: Depression, Tobacco Dependency Denies: Alcohol Dependency, Substance Abuse Traumatic Medical History: Reports: None Hematology: Denies: Anemia, Bleeding Tendencies Infectious Medical History: Reports: None Past Surgical History Past Surgical History: Reports: Cholecystectomy Social History Information Source: Patient Lives with: Alone Smoking Status: Former Smoker Frequency of Alcohol Use: Rare Hx Recreational Drug Use: No Drugs: None Hx Prescription Drug Abuse: No - Advance Directive Resuscitation Status: Full Code Surrogate healthcare decision maker:: Father Family History Family History: Hypertension Parental Family History Reviewed: Yes Children Family History Reviewed: No Sibling(s) Family History Reviewed.: Yes Medication/Allergy Home Medications: Lisinopril 40 mg PO DAILY 08/07/16 Lorazepam [Ativan 1 mg Tablet] 1 - 2 tab PO PRN PRN 10/13/16 Docusate Sodium [Colace 100 mg Capsule] 100 mg PO BID 30 Days #60 capsule 10/20/16 Ferrous Sulfate [Feosol 325 mg Tablet] 325 mg PO BID 30 Days #60 tab 10/20/16 Hydrocodone/Acetaminophen [[place] 5-325 mg Tablet] 2 tab PO Q4 tablet 10/20/16 Hydromorphone HCl [Dilaudid 2 mg Tablet] 2 mg PO Q4HP PRN 5 Days #30 tablet 10/20/16 Albuterol Sulfate [Proair HFA Inhalation Aerosol 8.5 gm MDI] 2 puff IH Q4H PRN #1 mdi 02/07/18 Benzonatate [Tessalon Perle 100 mg Capsule] 100 mg PO Q8HP PRN #15 cap 02/07/18 Prednisone [Deltasone 10 mg Tablet] 10 mg PO DAILY #18 tablet 02/07/18 Allergies/Adverse Reactions: Penicillins Allergy (Unknown, Verified 10/13/16 17:11) Anaphylaxis Review of Systems Constitutional: PRESENT: chills, fever(s) Eyes: ABSENT: visual disturbances, other - Ocular pain Ears: ABSENT: hearing changes, other - Ear pain Nose, Mouth, and Throat: PRESENT: sore throat. ABSENT: mouth pain Cardiovascular: ABSENT: chest pain, dyspnea on exertion, edema, orthropnea, palpitations Respiratory: PRESENT: cough, dyspnea. ABSENT: hemoptysis, sputum Gastrointestinal: PRESENT: nausea, vomiting. ABSENT: abdominal pain, constipation, diarrhea Genitourinary: ABSENT: dysuria, hematuria Musculoskeletal: ABSENT: deformity, joint swelling Integumentary: ABSENT: pruritus, rash Neurological: ABSENT: confusion, convulsions, memory loss, tremor(s) Psychiatric: ABSENT: anxiety, depression Endocrine: ABSENT: cold intolerance, heat intolerance Hematologic/Lymphatic: ABSENT: easy bleeding, easy bruising Physical Exam Vital Signs: Temp Pulse Resp BP Pulse Ox 100.9 F H 110 H 12 148/82 H 94 02/18/18 21:26 02/18/18 21:26 02/18/18 22:16 02/18/18 22:16 02/18/18 22:16 Intake & Output 02/17/18 02/18/18 02/19/18 23:59 23:59 23:59 Weight 143 kg General appearance: PRESENT: no acute distress, cooperative, morbidly obese Head exam: PRESENT: atraumatic, normocephalic Eye exam: PRESENT: conjunctiva pink. ABSENT: scleral icterus Ear exam: PRESENT: normal external ear exam. ABSENT: bleeding, drainage Mouth exam: PRESENT: dry mucosa, neck supple Neck exam: ABSENT: JVD, thyromegaly, tracheal deviation Respiratory exam: PRESENT: decreased breath sounds - Only fair air movement noted in all shea, prolonged expiratory phas - Moderately prolonged expiratory phase in all shea, symmetrical, unlabored, wheezes - Mild end expiratory wheezes Cardiovascular exam: PRESENT: RRR. ABSENT: clicks, gallop, rubs Pulses: PRESENT: normal radial pulses, normal dorsalis pedis pul Vascular exam: PRESENT: normal capillary refill. ABSENT: pallor GI/Abdominal exam: PRESENT: normal bowel sounds, soft Rectal exam: PRESENT: deferred Extremities exam: ABSENT: joint swelling, pedal edema Musculoskeletal exam: ABSENT: deformity, dislocation Neurological exam: PRESENT: alert, oriented to person, oriented to place, oriented to time, oriented to situation, CN II-XII grossly intact. ABSENT: motor sensory deficit Psychiatric exam: PRESENT: appropriate affect, normal mood Skin exam: PRESENT: dry, intact, warm. ABSENT: jaundice, rash, urticaria Results Laboratory Results: 02/18/18 23:02 02/18/18 23:02 02/18/18 02/18/18 02/18/18 23:02 23:02 23:02 WBC 20.2 H RBC 4.37 Hgb 12.6 Hct 38.0 MCV 87 MCH 28.9 MCHC 33.3 RDW 14.0 Plt Count 297 Seg Neutrophils % Not Reportable Lymphocytes % Not Reportable Monocytes % Not Reportable Eosinophils % Not Reportable Basophils % Not Reportable Absolute Neutrophils Not Reportable Absolute Lymphocytes Not Reportable Absolute Monocytes Not Reportable Absolute Eosinophils Not Reportable Absolute Basophils Not Reportable Sodium 136.6 L Potassium 3.6 Chloride 103 Carbon Dioxide 26 Anion Gap 8 BUN 10 Creatinine 0.92 Est GFR ( Amer) > 60 Est GFR (Non-Af Amer) > 60 Glucose 117 H Lactic Acid 1.0 Calcium 8.8 Impressions: Chest X-Ray 02/18/18 22:16 IMPRESSION: No acute cardiopulmonary abnormality. Chest CT 02/19/18 00:04 IMPRESSION: Consolidation in the right lower lobe. Groundglass opacity in the right upper lobe. This may represent multifocal pneumonia. Assessment & Plan - Diagnosis (1) SIRS (systemic inflammatory response syndrome) Is this a current diagnosis for this admission?: Yes Plan: The patient technically meets SIRS guidelines with a mild tachycardia, a low- grade fever, tachypnea and leukocytosis. Though in looking the patient she appears to be very stable and certainly does not grossly appear septic. At this point further evaluation will need to be done however the patient most likely will have sepsis ruled out. CBC will be monitored on a daily basis as well the metabolic profile and a serum magnesium level. (2) Primary atypical pneumonia Is this a current diagnosis for this admission?: Yes Plan: Patient does have some small areas of interstitial changes in the upper lobes as well as the area around the right lower lobe main bronchus. No true airspace disease is noted. The patient will be treated empirically for a atypical pneumonia with Levaquin 750 mg p.o. daily. Due to the fact that the patient does show some evidence of bronchospasm and decreased air motion she will be treated with an aggressive pulmonary toilet utilizing Xopenex, Atrovent, Pulmi dileep, albuterol and Mucomyst. She will also receive IV steroids for short course and a CBC will be monitored on a daily basis and clinical correlation will be applied. (3) Persistent cough for 3 weeks or longer Is this a current diagnosis for this admission?: Yes Plan: The patient has had a persistent cough for 5-6 weeks which may represent a an incompletely or untreated atypical pneumonia or may also represent a drug- induced cough though she no longer takes lisinopril she is taking Procardia which though much less frequently than lisinopril can cause chronic cough. To this end I have treated the patient with a atenolol 100 mg p.o. daily for her hypertension and along with the treatment of the patient's possible pneumonia with a and aggressive pulmonary toilet and IV steroids she will need clinical observation to determine if her cough is resolving. (4) Morbid obesity with BMI of 50.0-59.9, adult Is this a current diagnosis for this admission?: Yes Plan: A dietary consultation for weight reduction instruction should be arranged during the patient's hospital course. - Time Time Spent: 30 to 50 Minutes Critical Time spent with patient: Less than 15 minutes Medications reviewed and adjusted accordingly: Yes Anticipated discharge: Home - Inpatient Certification Based on my medical assessment, after consideration of the patient's comorbidities, presenting symptoms, or acuity I expect that the services needed warrant INPATIENT care.: Yes I certify that my determination is in accordance with my understanding of Medicare's requirements for reasonable and necessary INPATIENT services [42 CFR 412.3e].: Yes Medical Necessity: Failure to Improve With Outpatient Therapy, Significant Comorbidiites Make Outpatient Treatment Too Risky, Need Close Monitoring Due to Risk of Patient Decompensation, Need for Nebulizer Therapy and Monitoring of Response, Risk of Complication if Not Cared For in Hospital
[2018-02-19] MEDS: MORPHINE SULFATE 10 MG/ML INJ IV PRN ×2 (06:39→11:20)
[2018-02-19] MEDS: METHYLPREDNISOLONE INJ 40 MG/1 ML SDV IV SCH ×3 (06:39→19:53)
[2018-02-19] MEDS: IPRATROPIUM BROMIDE 0.02% NEB 0.5 MG/2.5 ML AMPUL NEB SCH ×2 (08:43→17:13)
[2018-02-19] MEDS: FONDAPARINUX SODIUM INJ 2.5 MG/0.5 ML DISP.SYRIN SUBCUT SCH (08:43)
[2018-02-19] MEDS: LEVALBUTEROL HCL NEB 1.25 MG/3 ML AMPUL NEB SCH ×2 (08:43→17:13)
[2018-02-19] MEDS: BUDESONIDE NEB 0.5 MG/2 ML AMPUL NEB SCH ×2 (08:43→20:19)
[2018-02-19] MEDS: ACETYLCYSTEINE 20% SOLN 800 MG/4 ML VIAL.NEB NEB SCH ×2 (08:50→20:19)
[2018-02-19] MEDS: ATENOLOL 50 MG TABLET PO SCH (11:06)
[2018-02-19] MEDS: FERROUS SULFATE 325 MG TABLET PO SCH (11:07)
[2018-02-19] MEDS: FAMOTIDINE 20 MG TABLET PO SCH ×2 (11:07→21:38)
[2018-02-19] MEDS: AZITHROMYCIN 250 MG TABLET PO SCH (11:07)
[2018-02-19] MEDS: DOCUSATE SODIUM 100 MG CAPSULE PO SCH ×2 (11:07→19:53)
[2018-02-19] MEDS ORDERED: ZOLPIDEM TARTRATE 5 MG TABLET PO ONE (17:25)
[2018-02-19] MEDS ORDERED: NAPROXEN 375 MG TABLET PO PRN (17:28)
[2018-02-19] MEDS: ALBUTEROL SULFATE 0.083% NEB 2.5 MG/3 ML AMPUL NEB PRN (20:19)
[2018-02-19] MEDS ORDERED: NAPROXEN 375 MG TABLET ONE (20:53)
[2018-02-19] MEDS: LEVOFLOXACIN 750 MG TABLET PO SCH (21:38)
[2018-02-19] MEDS ORDERED: ZOLPIDEM TARTRATE 5 MG TABLET PO SCH (22:00)
[2018-02-20] MEDS: LEVALBUTEROL HCL NEB 1.25 MG/3 ML AMPUL NEB SCH ×3 (00:42→16:59)
[2018-02-20] MEDS: IPRATROPIUM BROMIDE 0.02% NEB 0.5 MG/2.5 ML AMPUL NEB SCH ×3 (00:42→16:59)
[2018-02-20] MEDS ORDERED: TRAZODONE HCL 50 MG TABLET PO ONE (04:00)
[2018-02-20 05:31] LABS: HEMATOCRIT 35.5 % (36.0-47.0); HEMOGLOBIN 11.9 g/dL (12.0-15.5); MEAN CORPUSCULAR HEMOGLOBIN 29.1 pg (27.0-33.4); MEAN CORPUSCULAR HGB CONC 33.4 g/dL (32.0-36.0); MEAN CORPUSCULAR VOLUME 87 fl (80-97); PLATELET COUNT 298 10^3/uL (150-450); RED BLOOD COUNT 4.08 10^6/uL (3.72-5.28); RED CELL DISTRIBUTION WIDTH 14.2 % (11.5-14.0)
[2018-02-20 05:52] LABS: ANION GAP 12 (5-19); BLOOD UREA NITROGEN 13 mg/dL (7-20); CALCIUM 9.1 mg/dL (8.4-10.2); CARBON DIOXIDE 21 mmol/L (22-30); CHLORIDE 106 mmol/L (98-107); GLUCOSE 175 mg/dL (75-110); POTASSIUM 3.7 mmol/L (3.6-5.0); SODIUM 139.3 mmol/L (137-145)
[2018-02-20 05:59] LABS: ABSOLUTE LYMPHOCYTES# (MANUAL) 1.5 10^3/uL (0.5-4.7); ABSOLUTE MONOCYTES # (MANUAL) 0.4 10^3/uL (0.1-1.4); BAND NEUTROPHILS % (MANUAL) 1 % (3-5); BASOPHILS % (MANUAL) 0 % (0-2); EOSINOPHILS % (MANUAL) 0 % (0-6); LYMPHOCYTES % (MANUAL) 7 % (13-45); MONOCYTES % (MANUAL) 2 % (3-13); SEGMENTED NEUTROPHILS % (MAN) 90 % (42-78); TOTAL CELLS COUNTED 100
[2018-02-20 06:00] LABS: PLATELET COMMENT ADEQUATE; RBC MORPHOLOGY COMMENT NORMO-CYTIC/CHROMIC
[2018-02-20] MEDS: FONDAPARINUX SODIUM INJ 2.5 MG/0.5 ML DISP.SYRIN SUBCUT SCH (09:17)
[2018-02-20] MEDS: AZITHROMYCIN 250 MG TABLET PO SCH (09:18)
[2018-02-20] MEDS: ATENOLOL 50 MG TABLET PO SCH (09:18)
[2018-02-20] MEDS: FAMOTIDINE 20 MG TABLET PO SCH ×2 (09:18→21:48)
[2018-02-20] MEDS: FERROUS SULFATE 325 MG TABLET PO SCH (09:19)
[2018-02-20] MEDS: DOCUSATE SODIUM 100 MG CAPSULE PO SCH ×2 (09:19→17:27)
[2018-02-20] MEDS: ACETYLCYSTEINE 20% SOLN 800 MG/4 ML VIAL.NEB NEB SCH (09:22)
[2018-02-20] MEDS: BUDESONIDE NEB 0.5 MG/2 ML AMPUL NEB SCH ×2 (09:22→20:38)
[2018-02-20] MEDS ORDERED: LORAZEPAM 1 MG TABLET PO PRN (09:31)
[2018-02-20] MEDS ORDERED: ZOLPIDEM TARTRATE 5 MG TABLET PO PRN (16:41)
--- NOTE | 2018-02-20 16:59 | PDOC PROGRESS REPORT ---
Subjective Progress Note for:: 02/20/18 Subjective:: This is a 42 yr old female with a PMH of HTN, asthma, obesity and CKD who presented with productive cough and fever and was found to have multifocal pneumonia. She was started on azithromycin and Levaquin on admission. No acute event overnight. Patient says she is not significantly coughing out sputum. No fever or chills. She did have mild SOB when she went to the bathroom. She is saturating well on room air. She did complain that the IV morphine for her back pain (chronic) was discontinued. Explained this was switched to ibuprofen prn as there is no indication for her to be on opiates. Reason For Visit: PERSISTENT COUGH WITH FEVER Physical Exam Vital Signs: Temp Pulse Resp BP Pulse Ox 98.7 F 67 16 125/70 95 02/20/18 15:36 02/20/18 15:36 02/20/18 15:36 02/20/18 15:36 02/20/18 15:36 Intake & Output 02/19/18 02/20/18 02/21/18 06:59 06:59 06:59 Intake Total 1350 1400 876 Balance 1350 1400 876 Weight 315 lb 4.176 oz 317 lb 14.505 oz General appearance: PRESENT: no acute distress, well-developed, well-nourished Head exam: PRESENT: atraumatic, normocephalic Eye exam: PRESENT: conjunctiva pink, EOMI, PERRLA. ABSENT: scleral icterus Ear exam: PRESENT: normal external ear exam Mouth exam: PRESENT: moist, tongue midline Neck exam: ABSENT: carotid bruit, JVD, lymphadenopathy, thyromegaly Respiratory exam: PRESENT: rhonchi - right base. ABSENT: rales, wheezes Cardiovascular exam: PRESENT: RRR. ABSENT: diastolic murmur, rubs, systolic murmur Pulses: PRESENT: normal dorsalis pedis pul GI/Abdominal exam: PRESENT: normal bowel sounds, soft. ABSENT: distended, guard ing, mass, organolmegaly, rebound, tenderness Rectal exam: PRESENT: deferred Neurological exam: PRESENT: alert, awake, oriented to person, oriented to place, oriented to time, oriented to situation, CN II-XII grossly intact. ABSENT: motor sensory deficit Results Laboratory Results: 02/20/18 04:16 02/20/18 04:16 02/20/18 02/20/18 04:16 04:16 WBC 22.0 H RBC 4.08 Hgb 11.9 L Hct 35.5 L MCV 87 MCH 29.1 MCHC 33.4 RDW 14.2 H Plt Count 298 Seg Neutrophils % Not Reportable Lymphocytes % Not Reportable Monocytes % Not Reportable Eosinophils % Not Reportable Basophils % Not Reportable Absolute Neutrophils Not Reportable Absolute Lymphocytes Not Reportable Absolute Monocytes Not Reportable Absolute Eosinophils Not Reportable Absolute Basophils Not Reportable Sodium 139.3 Potassium 3.7 Chloride 106 Carbon Dioxide 21 L Anion Gap 12 BUN 13 Creatinine 0.87 Est GFR ( Amer) > 60 Est GFR (Non-Af Amer) > 60 Glucose 175 H Calcium 9.1 Magnesium 2.0 Impressions: Chest X-Ray 02/18/18 22:16 IMPRESSION: No acute cardiopulmonary abnormality. Chest CT 02/19/18 00:04 IMPRESSION: Consolidation in the right lower lobe. Groundglass opacity in the right upper lobe. This may represent multifocal pneumonia. Assessment & Plan - Diagnosis (1) Multifocal pneumonia Is this a current diagnosis for this admission?: Yes Plan: Currently on azithromycin and Rocephin. Sputum culture not done as she says she is not expectorating. Will add mucomyst and CPT. Also offered HIV testing in accordance to recommendation for her age and she refused testing. - Time Time Spent with patient: 15-24 minutes
[2018-02-20] MEDS: ALBUTEROL SULFATE 0.083% NEB 2.5 MG/3 ML AMPUL NEB PRN (20:39)
[2018-02-20] MEDS: ACETYLCYSTEINE 10% NEB 400 MG/4 ML VIAL NEB SCH (20:39)
[2018-02-20] MEDS: LEVOFLOXACIN 750 MG TABLET PO SCH (21:47)
[2018-02-21] MEDS: IPRATROPIUM BROMIDE 0.02% NEB 0.5 MG/2.5 ML AMPUL NEB SCH ×2 (01:00→08:17)
[2018-02-21] MEDS: LEVALBUTEROL HCL NEB 1.25 MG/3 ML AMPUL NEB SCH ×2 (01:01→08:17)
[2018-02-21] MEDS: ACETYLCYSTEINE 10% NEB 400 MG/4 ML VIAL NEB SCH ×3 (02:24→14:00)
[2018-02-21 07:10] LABS: ANION GAP 9 (5-19); BLOOD UREA NITROGEN 17 mg/dL (7-20); CALCIUM 8.6 mg/dL (8.4-10.2); CARBON DIOXIDE 24 mmol/L (22-30); CHLORIDE 109 mmol/L (98-107); GLUCOSE 79 mg/dL (75-110); POTASSIUM 3.6 mmol/L (3.6-5.0); SODIUM 142.3 mmol/L (137-145)
[2018-02-21 07:48] LABS: ABSOLUTE EOSINOPHILS # (AUTO) 0.1 10^3/uL (0.0-0.6); ABSOLUTE LYMPHOCYTES (AUTO) 4.1 10^3/uL (0.5-4.7); ABSOLUTE MONOCYTES (AUTO) 0.8 10^3/uL (0.1-1.4); ABSOLUTE NEUT (AUTO) 11.4 10^3/uL (1.7-8.2); BASOPHILS % (AUTO) 0.3 % (0-2); EOSINOPHILS % (AUTO) 0.4 % (0-6); HEMATOCRIT 35.6 % (36.0-47.0); HEMOGLOBIN 11.6 g/dL (12.0-15.5); LYMPHOCYTES % (AUTO) 24.9 % (13-45); MEAN CORPUSCULAR HEMOGLOBIN 28.6 pg (27.0-33.4); MEAN CORPUSCULAR HGB CONC 32.7 g/dL (32.0-36.0); MEAN CORPUSCULAR VOLUME 87 fl (80-97); MONOCYTES % (AUTO) 5.1 % (3-13); PLATELET COUNT 330 10^3/uL (150-450); RED BLOOD COUNT 4.07 10^6/uL (3.72-5.28); RED CELL DISTRIBUTION WIDTH 14.1 % (11.5-14.0); SEGMENTED NEUTROPHILS % (AUTO) 69.3 % (42-78); TOTAL CELLS COUNTED % (AUTO) 100 %; WHITE BLOOD COUNT 16.5 10^3/uL (4.0-10.5)
[2018-02-21] MEDS: FONDAPARINUX SODIUM INJ 2.5 MG/0.5 ML DISP.SYRIN SUBCUT SCH (08:04)
[2018-02-21] MEDS: BUDESONIDE NEB 0.5 MG/2 ML AMPUL NEB SCH (08:17)
[2018-02-21] MEDS ORDERED: NIFEDIPINE 30 MG TAB.ER.24 PO SCH (10:00)
[2018-02-21] MEDS: AZITHROMYCIN 250 MG TABLET PO SCH (11:08)
[2018-02-21] MEDS: FAMOTIDINE 20 MG TABLET PO SCH (11:08)
[2018-02-21] MEDS: FERROUS SULFATE 325 MG TABLET PO SCH (11:09)
[2018-02-21] MEDS: DOCUSATE SODIUM 100 MG CAPSULE PO SCH (11:09)
[2018-02-21] MEDS: ALBUTEROL SULFATE 0.083% NEB 2.5 MG/3 ML AMPUL NEB PRN (14:00)
[2018-02-21 16:12] VITALS: BP 139/89
--- NOTE | 2018-02-21 18:24 | PDOC DISCHARGE SUMMARY ---
General - Admit/Disc Date/PCP Admission Date/Primary Care Provider: 02/19/18 02:08 MARIE MONTAGUE PA-C Discharge Date: 02/21/18 - Discharge Diagnosis (1) Multifocal pneumonia Is this a current diagnosis for this admission?: Yes - Additional Information Resuscitation Status: Full Code Discharge Diet: As Tolerated Discharge Activity: Activity As Tolerated, Balance Activity w/Rest, Slowly Increase Activity Prescriptions: Benzonatate [Tessalon Perles 100 mg Capsule] 100 mg PO Q12HP PRN #20 capsule PRN Reason: RX: Albuterol Sulfate [Ventolin Hfa 8 gm Mdi (1 Mdi/ER Disp)] 2 puff IH Q6H PRN #1 inhaler PRN Reason: RX: Levofloxacin [Levaquin 750 mg Tablet] 750 mg PO QHS 5 Days #5 tablet Home Medications: RX: Nifedipine [Procardia XL 30 mg Tablet] 30 mg PO DAILY 02/19/18 Benzonatate [Tessalon Perles 100 mg Capsule] 100 mg PO Q12HP PRN #20 capsule 02/21/18 RX: Albuterol Sulfate [Ventolin Hfa 8 gm Mdi (1 Mdi/ER Disp)] 2 puff IH Q6H PRN #1 inhaler 02/21/18 RX: Levofloxacin [Levaquin 750 mg Tablet] 750 mg PO QHS 5 Days #5 tablet 02/21/18 History of Present Illness History of Present Illness: Admitting hospitalist's H&P: CARI SÁNCHEZ is a 42 year old female who presented to the emergency room with a 5-6 week history of a persistent nonproductive cough accompanied by intermittent fevers and occasional posttussive emesis. She admits that her cough has gradually worsened to the point where she now considers it to be severe and she has not found any improvement with treatment received on an outpatient basis including antitussives, antibiotics and steroids. She admits having low-grade fevers without chills at home and also she has experienced frequent paroxysmal coughing occasionally resulting in posttussive emesis. She denies having prior similar episodes of persistent cough and she has not thus far identified any aggravating or ameliorating factors for her cough. In the emergency room she was found to have hypertension, a mild tachycardia and a low- grade fever with a leukocytosis of 20,100. Chest x-ray was normal but chest CT showed some groundglass interstitial changes in the left upper lobe and a small consolidated area involving the tissues around the right lower lobe main bronchus. Hospital Course Hospital Course: This is a 42 yr old female with a PMH of HTN, asthma, obesity and CKD who presented with productive cough and fever and was found to have pneumonia. Chest x-ray was normal but chest CT revealed an area of consolidation on the right lower lobe and ground glass opacity in the right upper lobe. She was started on azithromycin and Levaquin on admission. She did improve clinically. She complains she has had multiple episodes of "bronchitis" and has had wheezing before but not formally diagnosed with asthma. She does not use any inhalers at home. She did not require any O2 support on the floor. She will be discharged on 5 more days of Levaquin. She was also given a new prescription for an albuterol inhaler and given an appt with pulmonology for a formal pulmonary function testing. Physical Exam Vital Signs: Temp Pulse Resp BP Pulse Ox 99.6 F 72 16 139/89 H 99 02/21/18 15:58 02/21/18 15:58 02/21/18 15:58 02/21/18 15:58 02/21/18 15:58 Intake & Output 02/20/18 02/21/18 02/22/18 06:59 06:59 06:59 Intake Total 1400 1844 Balance 1400 1844 Weight 317 lb 14.505 oz 322 lb 8.58 oz 322 lb 8.58 oz General appearance: PRESENT: no acute distress, well-developed, well-nourished Head exam: PRESENT: atraumatic, normocephalic Eye exam: PRESENT: conjunctiva pink, EOMI, PERRLA. ABSENT: scleral icterus Ear exam: PRESENT: normal external ear exam Mouth exam: PRESENT: moist, tongue midline Neck exam: ABSENT: carotid bruit, JVD, lymphadenopathy, thyromegaly Respiratory exam: PRESENT: clear to auscultation lan. ABSENT: rales, rhonchi, wheezes Cardiovascular exam: PRESENT: RRR. ABSENT: diastolic murmur, rubs, systolic murmur Pulses: PRESENT: normal dorsalis pedis pul GI/Abdominal exam: PRESENT: normal bowel sounds, soft. ABSENT: distended, guarding, mass, organolmegaly, rebound, tenderness Rectal exam: PRESENT: deferred Neurological exam: PRESENT: alert, awake, oriented to person, oriented to place, oriented to time, oriented to situation, CN II-XII grossly intact. ABSENT: motor sensory deficit Results Laboratory Results: 02/21/18 04:50 02/21/18 04:50 02/21/18 02/21/18 04:50 04:50 WBC 16.5 H RBC 4.07 Hgb 11.6 L Hct 35.6 L MCV 87 MCH 28.6 MCHC 32.7 RDW 14.1 H Plt Count 330 Seg Neutrophils % 69.3 Lymphocytes % 24.9 Monocytes % 5.1 Eosinophils % 0.4 Basophils % 0.3 Absolute Neutrophils 11.4 H Absolute Lymphocytes 4.1 Absolute Monocytes 0.8 Absolute Eosinophils 0.1 Absolute Basophils 0.0 Sodium 142.3 Potassium 3.6 Chloride 109 H Carbon Dioxide 24 Anion Gap 9 BUN 17 Creatinine 0.93 Est GFR ( Amer) > 60 Est GFR (Non-Af Amer) > 60 Glucose 79 Calcium 8.6 Magnesium 1.9 02/19/18 00:18 Throat Throat Culture - Final NORMAL JONNATHAN Impressions: Chest X-Ray 02/18/18 22:16 IMPRESSION: No acute cardiopulmonary abnormality. Chest CT 02/19/18 00:04 IMPRESSION: Consolidation in the right lower lobe. Groundglass opacity in the right upper lobe. This may represent multifocal pneumonia. Qualifiers - * PATIENT BEING DISCHARGED WITH ANY OF THE FOLLOWING DIAGNOSIS: No
[2018-02-23 17:46] LABS: MYCOPLASMA PNEUMONIAE IGG AB 2641 U/mL (0-99); MYCOPLASMA PNEUMONIAE IGM AB <770 U/mL (0-769)
== END 2018-02-21 16:21 | disposition home or self-care (01) | DRG 194 ==
LOC: ER 21:06 → EH 02-19 02:08 → 3W 02-19 04:19
PROVIDERS: ADMIT Emergency Medicine; ATTEND Emergency Medicine
PROC: 3E0F73Z Introduction of Anti-inflammatory into Respiratory Tract, Via Natural or Artificial Opening (ICD-10-PCS; principal; 2018-02-19)
DX: J18.8 Other pneumonia, unspecified organism (principal); Z68.43 Body mass index [BMI] 50.0-59.9, adult; I10 Essential (primary) hypertension; E66.9 Obesity, unspecified; R00.0 Tachycardia, unspecified; D72.829 Elevated white blood cell count, unspecified; M46.96 Unspecified inflammatory spondylopathy, lumbar region; F32.9 Major depressive disorder, single episode, unspecified; Z90.49 Acquired absence of other specified parts of digestive tract; Z87.891 Personal history of nicotine dependence; Z82.49 Family history of ischemic heart disease and other diseases of the circulatory system; Z88.0 Allergy status to penicillin
CPT/HCPCS: 36415; 71046; 71260; 80048; 83605; 83735; 85025; 86738; 87040; 87070; 87804; 87880; 93005; 93010; 94640; 96360; 96361; 99285; J1956; J2270; J2920; J3490; J7120

== ENCOUNTER → 2019-08-08 | Outpatient (CLI) | payer BC ==
--- NOTE | 2019-08-08 12:21 | RADIOLOGY REPORT (SQ) ---
EXAM DESCRIPTION: C SP 4 OR 5 VIEWS IMAGES COMPLETED DATE/TIME: 08/08/2019 11:23 am REASON FOR STUDY: NECK PAIN M54.2 CERVICALGIA M79.10 MYALGIA, UNSPECIFIED SITE Z83.3 FAMILY HISTO RY OF DIABETES MELLITUS COMPARISON: None. NUMBER OF VIEWS: Five views. TECHNIQUE: AP, lateral, obliques and odontoid radiographic images acquired of the cervical spine. LIMITATIONS: None. FINDINGS: MINERALIZATION: Normal. ALIGNMENT: Anatomic. VERTEBRAE: The cervical vertebral body heights are preserved. There is no fracture. DISCS: Bridging anterolateral osteophytes at C5-C6 and C6-C7. FORAMINA: No osteophytic foraminal stenosis. LATERAL AND POSTERIOR ELEMENTS: Intact. HARDWARE: None in the spine. SOFT TISSUES: No abnormality. OTHER: No other finding. IMPRESSION: Bridging anterolateral osteophytes at C5-C6 and C6-C7. There is no osteophytic foramina l stenosis. TECHNICAL DOCUMENTATION: JOB ID: [id number] 2010 [employer]- All Rights Reserved Reading location - IP/workstation name: [email or web address]
== END ==
LOC: OD 10:33
PROVIDERS: ATTEND Physician Assistant
DX: M54.2 Cervicalgia (principal); M25.78 Osteophyte, vertebrae; M79.601 Pain in right arm; M79.602 Pain in left arm; M79.10 Myalgia, unspecified site; E78.2 Mixed hyperlipidemia; Z83.3 Family history of diabetes mellitus
CPT/HCPCS: 72050